=== PATIENT | male | born 2000 | race Caucasian/White ===

== ENCOUNTER 2018-02-15 16:47 | Inpatient (IN) ==
[2018-02-15] MEDS ORDERED: Bisacodyl 10 MG Supp RECTAL PRN (22:58)
[2018-02-15] MEDS ORDERED: Acetaminophen 325 MG Tablet PO PRN (22:58)
[2018-02-15] MEDS ORDERED: Morphine Inj 4 MG/ML Vial IV.PUSH PRN (23:52)
[2018-02-16] MEDS: Sod Chloride 0.9% Inj 1,000 ML IV.CONT SCH ×3 (01:22→20:46)
--- NOTE | 2018-02-16 01:38 | P.HPIM ---
[facility]ness [facility]ician: No Primary Care Physician Chief Complaint: Abdominal pain History of Present Illness: Mr. Julio is a 17-year-old male with no significant medical history who presented to the emergency room and [place] complaining of abdominal pain. He had an abdomen/pelvis CT scan that showed a mass in the right pelvic cavity/ possible ectopic/undescended testicle with concern for torsion given inflammatory changes. He also had some wall thickening of adjacent urinary bladder that was nonspecific. The emergency room physician discussed the case with general surgery and urology and the patient was transferred to [facility] under the hospitalist service for further evaluation and management. Patient is seen in his hospital room. He reports symptoms started about 4-5 days ago with frequent bowel movements occurring for about 2 days mostly throughout the night with bowel movements occurring every 30 minutes. For the past 2 days he has experienced stabbing pains with urination along with urinary hesitancy but the frequent bowel movements have resolved. Denies hematuria. He reports severe left lower pelvic pain that resolved after coming to the emergency room. He is pain-free at the time of my examination except he does have some suprapubic tenderness noted with palpation. He denies any recent fevers, chills, chest pain, shortness of breath, nausea, vomiting, or diarrhea. He reports having some dizziness earlier today while working outside. That resolved with sitting down and drinking some water. Denies history of STDs; denies sexual activity x 6 months. Review of Systems All other systems reviewed negative except as stated in HPI [facility] - History History Provided By: Patient - Medical History Medical History: Medical History (Last Reviewed 02/16/18 @ 01:51 by KYLE Martines) Patient denies medical problems - Surgical History Surgical History: Surgical History (Last Reviewed 02/16/18 @ 01:51 by KYLE Martines) No history of previous surgery - Family History Family History: Family History (Last Updated 02/16/18 @ 01:51 by KYLE Martines) Sister Family history of gestational diabetes - Tobacco History Second Hand Smoke Exposure: No Tobacco Use In Past 30 Days: No Smoking Status: Never smoker - Alcohol History How Often Do You Have a Drink Containing Alcohol: Never - Substance Use History Substance History: No History of Abuse - Immunization History Tetanus Immunization: <5 Years Tetanus Immunization Year if Known: 2018 Medications and Allergies Active Medications: Active Medications Acetaminophen (Tylenol) 650 mg PO Q4H PRN PRN Reason: Temp > 100.4 Bisacodyl (Dulcolax Supp) 10 mg RECTAL DAILY PRN PRN Reason: SEVERE CONSITIPATION Sodium Chloride (Ns Inj) 1,000 mls @ 100 mls/hr IV.CONT .Q10H EDITH Last Admin: 02/16/18 01:22 Dose: 100 mls/hr Morphine Sulfate (Morphine Inj) 2 mg IV.PUSH Q3H PRN PRN Reason: nausea/vomiting/ PAIN Ondansetron HCl (Zofran Inj) 4 mg IV.PUSH Q6H PRN PRN Reason: NAUSEA OR VOMITING Sennosides (Senokot) 17.2 mg PO Q12H PRN PRN Reason: Moderate Constipation Allergies Allergy/AdvReac Type Severity Reaction Status Date / Time No Known Allergies Allergy Verified 02/15/18 16:49 Home Medications Medication Instructions Recorded Confirmed Type No Known Home Medications 02/15/18 02/16/18 History Exam Narrative: GENERAL: This is a pleasant, well-nourished, well-developed patient, in no apparent distress. SKIN: No rashes, ecchymoses or lesions. Cool and dry. HEAD: Atraumatic. Normocephalic. EYES: No scleral icterus. No injection or drainage. ENT: Nose without bleeding, purulent drainage. NECK: Trachea midline. No JVD. CARDIOVASCULAR: Regular rate and rhythm without murmurs, gallops, or rubs. RESPIRATORY: Clear to auscultation. Breath sounds equal bilaterally. No wheezes , rales, or rhonchi. GASTROINTESTINAL: Normally active bowel sounds. Abdomen soft, nondistended. No guarding. Suprapubic tenderness noted with palpation. MUSCULOSKELETAL: Extremities without clubbing, cyanosis, or edema. No calf tenderness. NEUROLOGICAL: Awake and alert. Motor and sensory grossly within normal limits. Normal speech. . Caprini VTE Risk Assessment Caprini VTE Risk Assessment: No/Low Risk (score <= 1) Caprini Risk Assessment Model: Point Value = 1 Point Value = 2 Point Value = 3 Point Value = 5 Age 41-60 Minor surgery BMI > 25 kg/m2 Swollen legs Varicose veins or History of unexplained or recurrent spontaneous Oral contraceptives or hormone replacement Sepsis (< 1 month) Serious lung disease, including pneumonia (< 1 month) Abnormal pulmonary function Acute myocardial infarction Congestive heart failure (< 1 month) History of inflammatory bowel disease Medical patient at bed rest Age 61-74 Arthroscopic surgery Major open surgery (> 45 min) Laparoscopic surgery (> 45 min) Malignancy Confined to bed (> 72 hours) Immobilizing plaster cast Central venous access Age >= 75 History of VTE Family history of VTE Factor V Leiden Prothrombin [id number] Lupus anticoagulant Anticardiolipin antibodies Elevated serum homocysteine Heparin-induced thrombocytopenia Other congenital or acquired thrombophilia Stroke (< 1 month) Elective arthroplasty Hip, pelvis, or leg fracture Acute spinal cord injury (< 1 month) Prophylaxis Regimen: Total Risk Factor Score Risk Level Prophylaxis Regimen 0-1 Low Early ambulation 2 Moderate Order ONE of the following: *Sequential Compression Device (SCD) *Heparin 5000 units SQ BID 3-4 Higher Order ONE of the following medications: *Heparin 5000 units SQ TID *Enoxaparin/Lovenox 40 mg SQ daily (WT < 150 kg, CrCl > 30 mL/min) *Enoxaparin/Lovenox 30 mg SQ daily (WT < 150 kg, CrCl > 10-29 mL/min) *Enoxaparin/Lovenox 30 mg SQ BID (WT < 150 kg, CrCl > 30 mL/min) AND/OR *Sequential Compression Device (SCD) 5 or more Highest Order ONE of the following medications: *Heparin 5000 units SQ TID (Preferred with Epidurals) *Enoxaparin/Lovenox 40 mg SQ daily (WT < 150 kg, CrCl > 30 mL/min) *Enoxaparin/Lovenox 30 mg SQ daily (WT < 150 kg, CrCl > 10-29 mL/min) *Enoxaparin/Lovenox 30 mg SQ BID (WT < 150 kg, CrCl > 30 mL/min) AND *Sequential Compression Device (SCD) Assessment and Plan - Plan Mr. Julio is a 17-year-old male with no significant medical history who presented to the emergency room and [place] complaining of abdominal pain. He had an abdomen/pelvis CT scan that showed a mass in the right pelvic cavity/ possible ectopic/undescended testicle with concern for torsion given inflammatory changes. He also had some wall thickening of adjacent urinary bladder that was nonspecific. The emergency room physician discussed the case with general surgery and urology and the patient was transferred to [facility] under the hospitalist service for further evaluation and management. Right pelvic mass with adjacent urinary bladder wall thickening Abdominal pain -Urinalysis normal in [place] ER -Gonorrhea and Chlamydia testing done in [place] -results are still pending -Consult urology -appreciate assistance (ER physician reportedly spoke with Dr. Solis catheterization laboratory technician) -Consult general surgery -appreciate assistance (ER physician reportedly spoke with Dr. Metcalf catheterization laboratory technician) -NPO -IV fluids with normal saline at 100 cc/h -Morphine 2 mg IV every 3 hours as needed pain greater than 4 -Monitor vital signs DVT prophylaxis -Early ambulation Discussed Condition With: Dr. Perez, patient, and RN H&P: Quality - VTE Deep Vein Thrombosis/Pulmonary Embolism Present on Admission: No
[2018-02-16] MEDS ORDERED: Morphine Sulfate Inj 2 MG/ML Vial IV.PUSH PRN (02:00)
--- NOTE | 2018-02-16 08:49 | P.PNIM ---
Subjective Interval history: Follow-up abdominal pain. Patient awake alert and oriented x3, laying in bed denies any abdominal pain at this time. Patient voiding but complains of burning when voiding. Patient denies any headache or dizziness, denies any fever or chills, denies any nausea or vomiting. Denies any complaint at this time. Patient n.p.o. for possible procedure today. Receiving IV fluid normal saline. Physical Exam Vital signs: Vital Signs 02/16/18 00:20 02/16/18 04:00 Temperature 100.3 F H 98.3 F Pulse Rate 106 H 77 Respiratory Rate 16 18 Blood Pressure 122/64 97/56 L Pulse Oximetry 99 100 Intake & Output 02/15/18 02/16/18 02/16/18 18:59 06:59 18:59 Intake Total 452 / 452 Balance 452 / 452 Weight 64.1 kg Intake: IV 452 / 452 NS Inj 1,000 ML @ 100 mls/hr IV 452 / 452 .CONT .Q10H EDITH Rx#:[id number] Oral 0 / 0 Other: # Voids 0 Date of Last Bowel Movement 02/15/18 # Bowel Movements 0 Narrative: GENERAL: This is a pleasant young male, alert and oriented x3,, well- nourished, well-developed patient, in no apparent distress. SKIN: No rashes, ecchymoses or lesions. Cool and dry. HEAD: Atraumatic. Normocephalic. EYES: No scleral icterus. No injection or drainage. ENT: Nose without bleeding, purulent drainage. NECK: Trachea midline. No JVD. CARDIOVASCULAR: Regular rate and rhythm without murmurs, gallops, or rubs. RESPIRATORY: Clear to auscultation. Breath sounds equal bilaterally. No wheezes , rales, or rhonchi. GASTROINTESTINAL: Normally active bowel sounds. Abdomen soft, nondistended. No guarding. Suprapubic tenderness with palpation. MUSCULOSKELETAL: Extremities without clubbing, cyanosis, or edema. No calf tenderness. NEUROLOGICAL: Awake and alert. Motor and sensory grossly within normal limits. Moving all 4 extremities normal speech. PSYCHIATRIC: Appropriate mood and affect; insight and judgment normal. Assessment and Plan - Assessment (1) Abdominal pain Code(s): R10.9 - Unspecified abdominal pain Status: Acute (2) Abdominal or pelvic swelling, mass, or lump, right lower quadrant Code(s): R19.03 - Right lower quadrant abdominal swelling, mass and lump Status: Acute (3) Undescended testicle, unconfirmed Code(s): Q53.9 - Undescended testicle, unspecified Status: Acute - Plan Mr. Julio is a 17-year-old male with no significant medical history who presented to the emergency room and [place] complaining of abdominal pain. He had an abdomen/pelvis CT scan that showed a mass in the right pelvic cavity/ possible ectopic/undescended testicle with concern for torsion given inflammatory changes. He also had some wall thickening of adjacent urinary bladder that was nonspecific. The emergency room physician discussed the case with general surgery and urology and the patient was transferred to [facility] under the hospitalist service for further evaluation and management. Right pelvic mass with adjacent urinary bladder wall thickening/possible ectopic /undescended testicle Abdominal pain -Urinalysis normal in [place] ER -Gonorrhea and Chlamydia testing done in [place] -results are still pending -Consult urology -appreciate assistance (ER physician reportedly spoke with Dr. Solis transportation maintenance supervisor) -Consult general surgery -appreciate assistance (ER physician reportedly spoke with Dr. Metcalf transportation maintenance supervisor) -NPO -IV fluids with normal saline at 100 cc/h -Morphine 2 mg IV every 3 hours as needed pain greater than 4 -Monitor vital signs -monitor CBC and BMP DVT prophylaxis -Early ambulation Code Status: full code Discussed Condition With: patient
--- NOTE | 2018-02-16 10:14 | P.CONGS ---
[facility] Gen Surgery Consult Note Consult date: 02/16/18 Narrative: 17 yo M presents with abdominal pain. About 1 month ago he developed left sided suprapubic pain associated with dysuria and urinary frequency. He had increased frequency of bowel movements but no hematochezia melena or mucus in the stool or diarrhea. The symptoms lasted for a few days and then resolved. However, 1-2 weeks ago the symptoms returned especially the dysuria and urinary frequency. He decided to present to the emergency department in [place] yesterday due to persistent symptoms and also somewhat acute onset of more significant pain. In the emergency department he was noted to have a white blood count of 10.5. Urinalysis was negative. CT scan of the abdomen and pelvis with oral and IV contrast showed a mass in the right pelvis and thickening of the bladder wall with some inflammatory changes associated. I discussed the CT and reviewed the images with Dr. Elizondo and the appendix is visualized. It does not appear obviously inflamed although the tip of the appendix is abutting the mass and could be part of the mass. Review of Systems All other systems reviewed negative except as stated in [facility] - History History Provided By: Patient - Medical History Medical History: Medical History (Last Reviewed 02/16/18 @ 01:51 by KYLE Martines) Patient denies medical problems - Surgical History Surgical History: Surgical History (Last Reviewed 02/16/18 @ 01:51 by KYLE Martines) No history of previous surgery - Family History Family History: Family History (Last Updated 02/16/18 @ 01:51 by KYLE Martines) Sister Family history of gestational diabetes - Tobacco History Second Hand Smoke Exposure: No Tobacco Use In Past 30 Days: No Smoking Status: Never smoker - Alcohol History How Often Do You Have a Drink Containing Alcohol: Never - Substance Use History Substance History: No History of Abuse - Immunization History Tetanus Immunization: <5 Years Tetanus Immunization Year if Known: 2018 Medications and Allergies Active Medications: Active Medications Acetaminophen (Tylenol) 650 mg PO Q4H PRN PRN Reason: Temp > 100.4 Bisacodyl (Dulcolax Supp) 10 mg RECTAL DAILY PRN PRN Reason: SEVERE CONSITIPATION Sodium Chloride (Ns Inj) 1,000 mls @ 100 mls/hr IV.CONT .Q10H EDITH Last Infusion: 02/16/18 06:30 Dose: 100 mls/hr Morphine Sulfate (Morphine Inj) 2 mg IV.PUSH Q3H PRN PRN Reason: PAIN 1-10 Ondansetron HCl (Zofran Inj) 4 mg IV.PUSH Q6H PRN PRN Reason: NAUSEA OR VOMITING Sennosides (Senokot) 17.2 mg PO Q12H PRN PRN Reason: Moderate Constipation Allergies Allergy/AdvReac Type Severity Reaction Status Date / Time No Known Allergies Allergy Verified 02/15/18 16:49 Home Medications Medication Instructions Recorded Confirmed Type No Known Home Medications 02/15/18 02/16/18 History Exam Vital signs: Vital Signs 02/16/18 00:20 02/16/18 04:00 02/16/18 08:00 Temperature 100.3 F H 98.3 F 97.7 F Pulse Rate 106 H 77 72 Respiratory Rate 16 18 23 Blood Pressure 122/64 97/56 L 101/57 L Pulse Oximetry 99 100 98 Intake & Output 02/15/18 02/16/18 02/16/18 18:59 06:59 18:59 Intake Total 452 / 452 Balance 452 / 452 Weight 64.1 kg Intake: IV 452 / 452 NS Inj 1,000 ML @ 100 mls/hr IV 452 / 452 .CONT .Q10H EDITH Rx#:[id number] Oral 0 / 0 Other: # Voids 0 Date of Last Bowel Movement 02/15/18 # Bowel Movements 0 Narrative: GENERAL: Awake and alert. No acute distress. Cooperative. HEAD: Normocephalic. Atraumatic. EYES: Pupils equal round and reactive to light bilaterally. No scleral icterus. ENT: Moist oral mucosa. NECK: Trachea midline. CHEST: Nonlabored breathing. No respiratory distress. CARDIOVASCULAR: Regular rate and rhythm. ABDOMEN: Soft, nondistended. Mild right lower quadrant tenderness to palpation. Moderate tenderness in the left suprapubic area. : No inguinal hernia. Bilateral descended testicles. EXTREMITIES: No cyanosis or edema. SKIN: Warm, dry, nonjaundiced. Results - Imaging CT scan - abdomen: report reviewed, image reviewed CT scan - pelvis: report reviewed, image reviewed Assessment and Plan - Assessment (1) Intra-abdominal abscess Code(s): K65.1 - Peritoneal abscess Status: Acute - Plan Etiology of the patient's symptoms is not completely clear although my working diagnosis would be that he had appendicitis last month which was untreated and now has a residual phlegmon or abscess. I would recommend IV antibiotics and have started Levaquin and Flagyl. Start clear liquids. Other possible diagnoses in the differential could be Meckel's diverticulitis, inflammatory bowel disease, cystitis. Will require 7-10 days of outpatient oral antibiotics after discharge.
--- NOTE | 2018-02-16 11:39 | P.CONURO ---
History of Present Illness Service: Consult date: 02/16/18 Requesting Physician: Lacie Suarez Reason for Consult: Right-sided pelvic mass Primary Care Provider: Divya Primary Care Physician Chief Complaint: Abdominal pain History of Present Illness: 17-year-old male with no prior past medical history who presented to the emergency room with severe lower abdominal pain. Patient reports that he had more subtle symptoms approximately 1 month ago that subsequently abated. However recently the symptoms have intensified thus prompting ER evaluation. Patient also complained of increased urinary frequency, dysuria and diarrhea for the past several days. A CT scan of the abdomen and pelvis was performed that demonstrated a mass involving the right pelvis adjacent to the urinary bladder likely inflammatory in nature. Patient was already seen by general surgery and a diagnosis of a phlegmon from a ruptured appendix is being entertained. Patient denies any previous urologic history. He reports that his testes have been bilaterally descended since . Urinalysis is negative for any signs of a UTI. Review of Systems All other systems reviewed negative except as stated in HPI [facility] - History History Provided By: Patient - Medical History Medical History: Medical History (Last Reviewed 02/16/18 @ 01:51 by KYLE Martines) Patient denies medical problems - Surgical History Surgical History: Surgical History (Last Reviewed 02/16/18 @ 01:51 by KYLE Martines) No history of previous surgery - Family History Family History: Family History (Last Updated 02/16/18 @ 01:51 by KYLE Martines) Sister Family history of gestational diabetes - Tobacco History Second Hand Smoke Exposure: No Tobacco Use In Past 30 Days: No Smoking Status: Never smoker - Alcohol History How Often Do You Have a Drink Containing Alcohol: Never - Substance Use History Substance History: No History of Abuse - Immunization History Tetanus Immunization: <5 Years Tetanus Immunization Year if Known: 2018 Medications and Allergies Active Medications: Active Medications Acetaminophen (Tylenol) 650 mg PO Q4H PRN PRN Reason: Temp > 100.4 Bisacodyl (Dulcolax Supp) 10 mg RECTAL DAILY PRN PRN Reason: SEVERE CONSITIPATION Sodium Chloride (Ns Inj) 1,000 mls @ 100 mls/hr IV.CONT .Q10H EDITH Last Infusion: 02/16/18 06:30 Dose: 100 mls/hr Levofloxacin/Dextrose (Levaquin 750 Mg Premix Inj) 150 mls @ 100 mls/hr IV.SIG Q24H EDITH Metronidazole/Sodium Chloride (Flagyl 500 Mg Inj) 100 mls @ 100 mls/hr IV.SIG Q8H EDITH Morphine Sulfate (Morphine Inj) 2 mg IV.PUSH Q3H PRN PRN Reason: PAIN 1-10 Ondansetron HCl (Zofran Inj) 4 mg IV.PUSH Q6H PRN PRN Reason: NAUSEA OR VOMITING Sennosides (Senokot) 17.2 mg PO Q12H PRN PRN Reason: Moderate Constipation Allergies Allergy/AdvReac Type Severity Reaction Status Date / Time No Known Allergies Allergy Verified 02/15/18 16:49 Home Medications Medication Instructions Recorded Confirmed Type No Known Home Medications 02/15/18 02/16/18 History Physical Exam Vital Signs - 24 hr 02/16/18 00:20 02/16/18 04:00 02/16/18 08:00 Temperature 100.3 F H 98.3 F 97.7 F Pulse Rate 106 H 77 72 Respiratory Rate 16 18 23 Blood Pressure 122/64 97/56 L 101/57 L Pulse Oximetry 99 100 98 Physical Exam: GENERAL: This is a well-nourished, well-developed patient, in no apparent distress. SKIN: No rashes, ecchymoses or lesions. Cool and dry. HEAD: Atraumatic. Normocephalic. No temporal or scalp tenderness. EYES: Pupils equal round and reactive. Extraocular motions intact. No scleral icterus. No injection or drainage. ENT: Nose without bleeding, purulent drainage or septal hematoma. Throat without erythema, tonsillar hypertrophy or exudate. Uvula midline. Airway patent. NECK: Trachea midline. No JVD or lymphadenopathy. Supple, nontender, no meningeal signs. CARDIOVASCULAR: Regular rate and rhythm without murmurs, gallops, or rubs. RESPIRATORY: Clear to auscultation. Breath sounds equal bilaterally. No wheezes , rales, or rhonchi. GASTROINTESTINAL: Abdomen soft, non-tender, nondistended. No hepato-splenomegaly , or palpable masses. No guarding. GENITOURINARY: No CVA tenderness, normal phallus, testes bilaterally descended and normal size and consistency, no inguinal hernia formation noted MUSCULOSKELETAL: Extremities without clubbing, cyanosis, or edema. No joint tenderness, effusion, or edema noted. No calf tenderness. Negative Homans sign bilaterally. NEUROLOGICAL: Awake and alert. Cranial nerves II through XII intact. Motor and sensory grossly within normal limits. Five out of 5 muscle strength in all muscle groups. Normal speech. Assessment and Plan - Assessment (1) Abdominal or pelvic swelling, mass, or lump, right lower quadrant Code(s): R19.03 - Right lower quadrant abdominal swelling, mass and lump Status: Acute - Plan Urologic impression: 1. Right sided pelvic mass likely inflammatory nature and consistent with phlegmon formation from a ruptured appendix 2. Lower urinary symptoms likely related to the pelvic inflammatory changes 3. Testes bilaterally descended and precludes diagnosis of a undescended torted testicle Recommendations: 1. Agree with general surgery recommendations 2. No intervention indicated 3. Will be available as needed
[2018-02-16 13:43] LABS: Baso % (Auto) 0.3 % (0.0-2.0); Eos # (Auto) 0.1 th/mm3 (0.0-0.4); Eos % (Auto) 0.9 % (0.0-4.0); Hematocrit 37.6 % (39.0-51.0); Hemoglobin 12.9 gm/dL (13.0-17.0); Lymph # (Auto) 1.6 th/mm3 (1.0-4.8); Lymph % (Auto) 19.8 % (9.0-44.0); Mean Corpuscular HGB Conc 34.5 % (32.0-36.0); Mean Corpuscular Hemoglobin 30.9 pg (27.0-34.0); Mean Corpuscular Volume 89.8 fL (80.0-100.0); Mean Platelet Volume 8.9 fL (7.0-11.0); Mono # (Auto) 0.7 th/mm3 (0.0-0.9); Neut # (Auto) 5.6 th/mm3 (1.8-7.7); Platelet Count 237 th/mm3 (150-450); Red Blood Count 4.18 mil/mm3 (4.50-5.90); Red Cell Distribution Width 13.2 % (11.6-17.2)
[2018-02-16 14:04] LABS: Anion Gap 9 meq/L (5-15); Blood Urea Nitrogen 11 mg/dL (7-18); Calcium 8.5 mg/dL (8.5-10.1); Carbon Dioxide 29.1 meq/L (21.0-32.0); Chloride 105 meq/L (98-107); Glomerular Filtration Rate Greater Than 89 mL/min (>89); Glucose,Random 81 mg/dL (74-106); Potassium 4.2 meq/L (3.5-5.1); Sodium 143 meq/L (136-145)
[2018-02-17] MEDS: Sod Chloride 0.9% Inj 1,000 ML IV.CONT SCH ×4 (00:20→17:24)
[2018-02-17 11:11] LABS: Baso % (Auto) 0.4 % (0.0-2.0); Eos # (Auto) 0.1 th/mm3 (0.0-0.4); Eos % (Auto) 1.8 % (0.0-4.0); Hematocrit 37.9 % (39.0-51.0); Hemoglobin 12.9 gm/dL (13.0-17.0); Lymph # (Auto) 1.9 th/mm3 (1.0-4.8); Mean Corpuscular HGB Conc 34.2 % (32.0-36.0); Mean Corpuscular Hemoglobin 30.7 pg (27.0-34.0); Mean Corpuscular Volume 89.7 fL (80.0-100.0); Mean Platelet Volume 9.1 fL (7.0-11.0); Mono # (Auto) 0.8 th/mm3 (0.0-0.9); Mono % (Auto) 9.9 % (0.0-8.0); Neut # (Auto) 5.2 th/mm3 (1.8-7.7); Neut % (Auto) 64.9 % (16.0-70.0); Platelet Count 216 th/mm3 (150-450); Red Blood Count 4.22 mil/mm3 (4.50-5.90); Red Cell Distribution Width 12.9 % (11.6-17.2)
[2018-02-17 11:33] LABS: Anion Gap 7 meq/L (5-15); Blood Urea Nitrogen 8 mg/dL (7-18); Calcium 8.5 mg/dL (8.5-10.1); Carbon Dioxide 27.2 meq/L (21.0-32.0); Chloride 106 meq/L (98-107); Glomerular Filtration Rate Greater Than 89 mL/min (>89); Glucose,Random 78 mg/dL (74-106); Potassium 3.9 meq/L (3.5-5.1); Sodium 140 meq/L (136-145)
--- NOTE | 2018-02-17 13:19 | P.PNGS ---
Subjective Interval history: Denies pain. Tolerating clears. Afebrile. Physical Exam Vital signs: Vital Signs 02/16/18 16:00 02/16/18 20:00 02/17/18 00:00 Temperature 97.8 F 97.7 F 97.8 F Pulse Rate 85 81 78 Respiratory Rate 21 16 16 Blood Pressure 109/62 109/69 113/56 L Pulse Oximetry 100 95 99 02/17/18 04:00 02/17/18 08:00 02/17/18 12:00 Temperature 98 F 98.1 F 98.4 F Pulse Rate 80 78 88 Respiratory Rate 16 16 16 Blood Pressure 125/67 106/56 L 111/56 L Pulse Oximetry 98 99 97 Intake & Output 02/16/18 02/17/18 02/17/18 18:59 06:59 18:59 Intake Total 798 / 798 2580 / 2580 700 / 700 Output Total 400 / 400 Balance 798 / 798 2180 / 2180 700 / 700 Weight 64.8 kg Intake: IV 798 / 798 1650 / 1650 700 / 700 NS Inj 1,000 ML @ 100 mls/hr IV 548 / 548 1450 / 1450 550 / 550 .CONT .Q10H EDITH Rx#:[id number] Levaquin 750 mg Premix Inj 150 150 / 150 150 / 150 ML @ 100 mls/hr IV.SIG Q24H EDITH Rx#:[id number] Flagyl 500 MG Inj 100 ML @ 100 100 / 100 200 / 200 mls/hr IV.SIG Q8H EDITH Rx#: [id number] Oral 480 / 480 Other 450 / 450 Output: Urine 400 / 400 Urine/Stool Mix 0 / 0 Other: Other Intake Source Saline Solution Date of Last Bowel Movement 02/15/18 02/15/18 02/16/18 Narrative: NAD Abd: soft, mild left suprapubic ttp, no rebound or guarding Results - Labs 02/17/18 10:10 02/17/18 10:10 Laboratory Results - last 24 hr 02/16/18 02/16/18 02/17/18 12:57 12:57 10:10 WBC 8.0 RBC 4.18 L Hgb 12.9 L Hct 37.6 L MCV 89.8 MCH 30.9 MCHC 34.5 RDW 13.2 Plt Count 237 MPV 8.9 Neut % (Auto) 70.0 Lymph % (Auto) 19.8 [place] % (Auto) 9.0 H Eos % (Auto) 0.9 Baso % (Auto) 0.3 Neut # (Auto) 5.6 Lymph # (Auto) 1.6 [place] # (Auto) 0.7 Eos # (Auto) 0.1 Baso # (Auto) 0.0 WBC Differential . Differential Comment Auto diff final Sodium 143 140 Potassium 4.2 3.9 Chloride 105 106 Carbon Dioxide 29.1 27.2 Anion Gap 9 7 BUN 11 8 Creatinine 0.98 0.98 Estimated GFR Greater than 89 Greater than 89 Random Glucose 81 78 Calcium 8.5 D 8.5 02/17/18 10:10 WBC 8.0 RBC 4.22 L Hgb 12.9 L Hct 37.9 L MCV 89.7 MCH 30.7 MCHC 34.2 RDW 12.9 Plt Count 216 MPV 9.1 Neut % (Auto) 64.9 Lymph % (Auto) 23.0 [place] % (Auto) 9.9 H Eos % (Auto) 1.8 Baso % (Auto) 0.4 Neut # (Auto) 5.2 Lymph # (Auto) 1.9 [place] # (Auto) 0.8 Eos # (Auto) 0.1 Baso # (Auto) 0.0 WBC Differential . Differential Comment Auto diff final Sodium Potassium Chloride Carbon Dioxide Anion Gap BUN Creatinine Estimated GFR Random Glucose Calcium Assessment and Plan - Assessment (1) Intra-abdominal abscess Code(s): K65.1 - Peritoneal abscess Status: Acute - Plan He is stable if not somewhat improved. Afebrile with normal wbc. Start regular diet and rec d/c home later with 10 days levaquin/flagyl. F/u with Dr. Quinn in [place] Feb 27. Call office if increased pain, fever, etc.
--- NOTE | 2018-02-17 13:32 | P.DS ---
Date of admission: 02/16/18 15:11 Primary care physician: No Primary Care Physician Attending physician on discharge: Darrian Harrison Anticipated date of discharge: 02/17/18 Brief History from admission: Mr. Julio is a 17-year-old male with no significant medical history who presented to the emergency room and [place] complaining of abdominal pain. He had an abdomen/pelvis CT scan that showed a mass in the right pelvic cavity/ possible ectopic/undescended testicle with concern for torsion given inflammatory changes. He also had some wall thickening of adjacent urinary bladder that was nonspecific. The emergency room physician discussed the case with general surgery and urology and the patient was transferred to [facility] under the hospitalist service for further evaluation and management. Patient is seen in his hospital room. He reports symptoms started about 4-5 days ago with frequent bowel movements occurring for about 2 days mostly throughout the night with bowel movements occurring every 30 minutes. For the past 2 days he has experienced stabbing pains with urination along with urinary hesitancy but the frequent bowel movements have resolved. Denies hematuria. He reports severe left lower pelvic pain that resolved after coming to the emergency room. He is pain-free at the time of my examination except he does have some suprapubic tenderness noted with palpation. He denies any recent fevers, chills, chest pain, shortness of breath, nausea, vomiting, or diarrhea. He reports having some dizziness earlier today while working outside. That resolved with sitting down and drinking some water. Denies history of STDs; denies sexual activity x 6 months. Patient update on day of discharge: Follow-up abdominal pain, intra-abdominal abscess. Patient seen and examined laying in bed awake alert and oriented x3, stated wanted to go home. Patient denies any pain or shortness of breath. Only complaint of slight pain with palpation on the left lower abdomen. Patient stated he had abdominal pain a month ago a slight abdominal pain. Unsure if he had appendicitis and was not diagnosed with it. Patient stated he was hospitalized last month for abdominal pain. Denies any nausea or vomiting. Denies any diarrhea or constipation. Patient denies any headache or dizziness, chest pain or shortness of breath. Patient denies any fever or chills. Discussed with general surgery, cleared to go home on p.o. antibiotic and to follow-up with the general surgery. Patient will be discharged when cleared with urology DS: Diagnosis - Discharge Diagnosis (1) Abdominal pain Status: Acute (2) Abdominal or pelvic swelling, mass, or lump, right lower quadrant Status: Acute (3) Undescended testicle, unconfirmed Status: Acute (4) Intra-abdominal abscess Status: Acute DS: Summary Hospital Course: Mr. Julio is a 17-year-old male with no significant medical history who presented to the emergency room and [place] complaining of abdominal pain. He had an abdomen/pelvis CT scan that showed a mass in the right pelvic cavity/ possible ectopic/undescended testicle with concern for torsion given inflammatory changes. He also had some wall thickening of adjacent urinary bladder that was nonspecific. Urology and general surgery consulted. General surgery to recommended to treat with IV antibiotic, Flagyl and Levaquin. Noted that the etiology of the symptoms is not completely clear, most likely had appendicitis last month from the abdominal pain which was untreated and now has a residual phlegmon or abscess. Also noted other possible diagnosis in the differential could be Meckel's diverticulitis, inflammatory bowel disease, cystitis. Patient will be discharged on oral antibiotics for 10 days, Levaquin and Flagyl. And will follow up with the general surgery on 02/27. - Time Spent with Patient Total time spent providing and/or coordinating discharge services: Less than 30 minutes - Quality: VTE Deep Vein Thrombosis/Pulmonary Embolism Present on Admission: No Exam Vital signs: Vital Signs 02/16/18 16:00 02/16/18 20:00 02/17/18 00:00 Temperature 97.8 F 97.7 F 97.8 F Pulse Rate 85 81 78 Respiratory Rate 21 16 16 Blood Pressure 109/62 109/69 113/56 L Pulse Oximetry 100 95 99 02/17/18 04:00 02/17/18 08:00 02/17/18 12:00 Temperature 98 F 98.1 F 98.4 F Pulse Rate 80 78 88 Respiratory Rate 16 16 16 Blood Pressure 125/67 106/56 L 111/56 L Pulse Oximetry 98 99 97 Intake & Output 02/16/18 02/17/18 02/17/18 18:59 06:59 18:59 Intake Total 798 / 798 2580 / 2580 700 / 700 Output Total 400 / 400 Balance 798 / 798 2180 / 2180 700 / 700 Weight 64.8 kg Intake: IV 798 / 798 1650 / 1650 700 / 700 NS Inj 1,000 ML @ 100 mls/hr IV 548 / 548 1450 / 1450 550 / 550 .CONT .Q10H EDITH Rx#:[id number] Levaquin 750 mg Premix Inj 150 150 / 150 150 / 150 ML @ 100 mls/hr IV.SIG Q24H EDITH Rx#:[id number] Flagyl 500 MG Inj 100 ML @ 100 100 / 100 200 / 200 mls/hr IV.SIG Q8H EDITH Rx#: [id number] Oral 480 / 480 Other 450 / 450 Output: Urine 400 / 400 Urine/Stool Mix 0 / 0 Other: Other Intake Source Saline Solution Date of Last Bowel Movement 02/15/18 02/15/18 02/16/18 Narrative: GENERAL: This is a pleasant young male, alert and oriented x3,, well- nourished, well-developed patient, in no apparent distress. SKIN: No rashes, ecchymoses or lesions. Cool and dry. HEAD: Atraumatic. Normocephalic. EYES: No scleral icterus. No injection or drainage. ENT: Nose without bleeding, purulent drainage. NECK: Trachea midline. No JVD. CARDIOVASCULAR: Regular rate and rhythm without murmurs, gallops, or rubs. RESPIRATORY: Clear to auscultation. Breath sounds equal bilaterally. No wheezes , rales, or rhonchi. GASTROINTESTINAL: Normally active bowel sounds. Abdomen soft, nondistended. No guarding. Left lower abdominal/suprapubic slight tenderness with palpation. : No inguinal hernia, bilateral descended testicles, nontender, no edema MUSCULOSKELETAL: Extremities without clubbing, cyanosis, or edema. No calf tenderness. NEUROLOGICAL: Awake and alert. Motor and sensory grossly within normal limits. Moving all 4 extremities normal speech. PSYCHIATRIC: Appropriate mood and affect; insight and judgment normal. Results Procedures completed during hospitalization: n/a Labs on day of discharge: Labs from last 24 hours 02/17/18 02/17/18 02/16/18 10:10 10:10 12:57 WBC 8.0 RBC 4.22 L Hgb 12.9 L Hct 37.9 L MCV 89.7 MCH 30.7 MCHC 34.2 RDW 12.9 Plt Count 216 MPV 9.1 Neut % (Auto) 64.9 Lymph % (Auto) 23.0 [place] % (Auto) 9.9 H Eos % (Auto) 1.8 Baso % (Auto) 0.4 Neut # (Auto) 5.2 Lymph # (Auto) 1.9 [place] # (Auto) 0.8 Eos # (Auto) 0.1 Baso # (Auto) 0.0 WBC Differential . Differential Comment Auto diff final Sodium 140 143 Potassium 3.9 4.2 Chloride 106 105 Carbon Dioxide 27.2 29.1 Anion Gap 7 9 BUN 8 11 Creatinine 0.98 0.98 Estimated GFR Greater than 89 Greater than 89 Random Glucose 78 81 Calcium 8.5 8.5 D 02/16/18 12:57 WBC 8.0 RBC 4.18 L Hgb 12.9 L Hct 37.6 L MCV 89.8 MCH 30.9 MCHC 34.5 RDW 13.2 Plt Count 237 MPV 8.9 Neut % (Auto) 70.0 Lymph % (Auto) 19.8 [place] % (Auto) 9.0 H Eos % (Auto) 0.9 Baso % (Auto) 0.3 Neut # (Auto) 5.6 Lymph # (Auto) 1.6 [place] # (Auto) 0.7 Eos # (Auto) 0.1 Baso # (Auto) 0.0 WBC Differential . Differential Comment Auto diff final Sodium Potassium Chloride Carbon Dioxide Anion Gap BUN Creatinine Estimated GFR Random Glucose Calcium Discharge Plan - Discharge Disposition Patient Disposition: 01 Discharge Home - Discharge Condition Condition: Stable - Physicians Team Primary Care Provider: Primary Care Divya Newman Attending Provider: Darrian Harrison Other Providers: Hunter Metcalf MD ; Gregorio Solis MD - Rxs /Orders / Referrals /Forms Prescriptions: New levofloxacin 750 mg Tablet 750 mg PO DAILY 10 Days Qty: 10 RF: 0 metronidazole 500 mg Tablet 500 mg PO Q8HR 10 Days Qty: 30 RF: 0 No Action No Known Home Medications Referrals: Hunter Metcalf MD [GENERAL SURGERY] - See Instructions (Follow-up on 02/27 ) Primary Care Divya Newman [Primary Care Provider] - See Instructions
[2018-02-17] MEDS ORDERED: metroNIDAZOLE 500 MG Tablet PO SCH (20:00)
[2018-02-18] MEDS ORDERED: levoFLOXacin 750 MG Tablet PO SCH (11:00)
== END 2018-02-17 17:09 | disposition home or self-care (01) ==
LOC: NEDDLT 02-16 00:14 → N04 02-16 00:14
PROVIDERS: ADMIT Internal Medicine; ATTEND Internal Medicine